=== PATIENT | female | born 1990 | race American Indian/Alaskan Native ===

== ENCOUNTER 2019-07-10 09:30 | Emergency (ER) | payer MEDICAID ==
[2019-07-10] MEDS ORDERED: ASPIRIN PO ONE (09:38)
[2019-07-10 10:43] LABS: BUN/Creatinine Ratio 27; Blood Urea Nitrogen 8 mg/dL (7-17); Calcium 9.4 mg/dL (8.4-10.2); Hemolysis Index 1
[2019-07-10 10:44] LABS: Basophils # (Auto) 0.1 K/mm3 (0.0-0.1); Basophils % (Auto) 0.6 % (0.0-1.8); Eosinophils # (Auto) 0.4 K/mm3 (0.0-0.4); Eosinophils % (Auto) 4.2 % (0.0-4.3); Hematocrit 36.4 % (30.3-42.9); Hemoglobin 12.1 gm/dl (10.1-14.3); Lymphocytes # (Auto) 2.6 K/mm3 (1.2-5.4); Lymphocytes % (Auto) 29.9 % (13.4-35.0); Mean Corpuscular HGB Conc 33 % (30-34); Mean Corpuscular Volume 79 fl (79-97); Monocytes # (Auto) 0.5 K/mm3 (0.0-0.8); Monocytes % (Auto) 5.2 % (0.0-7.3); Platelet Count 283 K/mm3 (140-440)
--- NOTE | 2019-07-10 10:53 | XRay Report ---
CHEST 2 VIEWS INDICATION / CLINICAL INFORMATION: Chest Pain. COMPARISON: None available. FINDINGS: SUPPORT DEVICES: None. HEART / MEDIASTINUM: No significant abnormality. LUNGS / PLEURA: No significant pulmonary or pleural abnormality. No pneumothorax. ADDITIONAL FINDINGS: No significant additional findings. IMPRESSION: 1. No acute findings. Signer Name: Eusebio Lara MD Signed: 07/10/2019 10:49 AM Workstation Name: [id number]
[2019-07-10] MEDS ORDERED: NORVASC PO ONE (11:22)
[2019-07-10] MEDS ORDERED: NORCO 5/325 PO ONE (11:22)
--- NOTE | 2019-07-10 11:27 | Emergency Department Report ---
HPI - General Chief Complaint: Chest Pain Time Seen by Provider: 07/10/19 11:07 - HPI HPI: Room 44 The patient is a 29-year-old female presenting with chief complaint of hypertension and chest pain. The patient states she is a constant headache diffusely for the past 2 days. Patient states she's also had intermittent substernal chest pain is sharp in nature. Patient states she feels the blood pressure is elevated. Patient says she does not carry a diagnosis of hypertension. Patient denies shortness of breath, nausea/vomiting or diaphoresis with chest pain. Patient currently gets her headache score of 9/10 chest pain score 4/10. Location: [See above] Duration: [See above] Quality: [See above] Severity: [See above] Timing: [See above] Context: [See above] Modifying factors: [See above] Associated signs and symptoms: [see above] ED Past Medical Hx - Surgical History Past Surgical History?: No Additional Surgical History: Bilateral tubal ligation - Family History Family history: no significant - Social History Smoking Status: Never Smoker Substance Use Type: None (denies illicit drug use), Alcohol (occasional) - Medications Home Medications: Home Medications Medication Instructions Recorded Confirmed Last Taken Type oxyCODONE /ACETAMINOPHEN [Percocet 1 - 2 tab PO Q4H PRN #30 tablet 09/11/18 Unknown Rx 5/325 mg] amLODIPine [Norvasc] 5 mg PO DAILY #90 tab 07/10/19 Unknown Rx traMADol [Ultram] 50 mg PO Q6HR PRN #10 tablet 07/10/19 Unknown Rx ED Review of Systems ROS: Stated complaint: CHEST PAIN/HBP Other details as noted in HPI Constitutional: no symptoms reported Eyes: denies: eye pain ENT: denies: throat pain Respiratory: denies: shortness of breath Cardiovascular: chest pain Endocrine: no symptoms reported Gastrointestinal: denies: abdominal pain, nausea, vomiting Genitourinary: denies: dysuria Musculoskeletal: denies: back pain Neurological: headache Physical Exam - Physical Exam Vital Signs: Vital Signs 07/10/19 09:36 Temperature 98.5 F Pulse Rate 109 H Respiratory 16 Rate Blood Pressure 178/100 O2 Sat by Pulse 95 Oximetry Physical Exam: GENERAL: The patient is well-developed well-nourished female lying on chair not appearing to be in acute distress. [] HEENT: Normocephalic. Atraumatic. Extraocular motions are intact. Patient has moist mucous membranes. NECK: Supple. No meningitic signs are noted. Trachea midline CHEST/LUNGS: Clear to auscultation. There is no respiratory distress noted. HEART/CARDIOVASCULAR: Regular. There is no tachycardia. There is no gallop rub or murmur. ABDOMEN: Abdomen is soft, nontender. Patient has normal bowel sounds. There is no abdominal distention. SKIN: There is no rash. There is no edema. There is no diaphoresis. NEURO: The patient is awake, alert, and oriented. The patient is cooperative. The patient has no focal neurologic deficits. The patient has normal speech. Cranial nerves II through XII grossly intact, no drift MUSCULOSKELETAL: There is no evidence of acute injury. ED Course Vital Signs 07/10/19 09:36 Temperature 98.5 F Pulse Rate 109 H Respiratory 16 Rate Blood Pressure 178/100 O2 Sat by Pulse 95 Oximetry ED Medical Decision Making - Lab Data Result diagrams: 07/10/19 10:10 07/10/19 10:10 Laboratory Tests 07/10/19 07/10/19 07/10/19 10:10 10:10 12:23 WBC 8.8 RBC 4.60 Hgb 12.1 Hct 36.4 MCV 79 MCH 26 L MCHC 33 RDW 13.0 L Plt Count 283 Lymph % (Auto) 29.9 [place] % (Auto) 5.2 Eos % (Auto) 4.2 Baso % (Auto) 0.6 Lymph # 2.6 [place] # 0.5 Eos # 0.4 Baso # 0.1 Seg Neutrophils % 60.1 Seg Neutrophils # 5.3 D-Dimer Sodium 141 Potassium 3.8 Chloride 103.7 Carbon Dioxide 26 Anion Gap 15 BUN 8 Creatinine 0.3 L Estimated GFR > 60 BUN/Creatinine Ratio 27 Glucose 93 Calcium 9.4 Troponin T < 0.010 < 0.010 HCG, Qual 07/10/19 07/10/19 12:23 12:23 WBC RBC Hgb Hct MCV MCH MCHC RDW Plt Count Lymph % (Auto) [place] % (Auto) Eos % (Auto) Baso % (Auto) Lymph # [place] # Eos # Baso # Seg Neutrophils % Seg Neutrophils # D-Dimer 176.83 Sodium Potassium Chloride Carbon Dioxide Anion Gap BUN Creatinine Estimated GFR BUN/Creatinine Ratio Glucose Calcium Troponin T HCG, Qual Negative - EKG Data -: EKG Interpreted by Me EKG shows normal: sinus rhythm Rate: normal - EKG Data When compared to previous EKG there are: previous EKG unavailable Interpretation: other (no ischemic changes seen) - Radiology Data Radiology results: report reviewed (chest x-ray, CT head), image reviewed (chest x-ray, CT head) interpreted by me: Chest x-ray-no focal infiltrates, no pneumothorax Print Report Referring Physician: ROBERT CHAMBERS Patient Name: KERRY KUMAR Date of : 1990 Sex: Female Report Date: 2019-07-10 Report Status: Finalized Findings [address] [address] XRay Report Signed Patient: KERRY KUMAR MR#: [id number] : 1990 Acct:[id number] Age/Sex: 29 / F ADM Date: 07/10/19 Loc: ED Attending Dr: Ordering Physician: ROBERT CHAMBERS MD Date of Service: 07/10/19 Procedure(s): XR chest routine 2V Accession Number(s): [id number] cc: ROBERT CHAMBERS MD Fluoro Time In Minutes: CHEST 2 VIEWS INDICATION / CLINICAL INFORMATION: Chest Pain. COMPARISON: None available. FINDINGS: SUPPORT DEVICES: None. HEART / MEDIASTINUM: No significant abnormality. LUNGS / PLEURA: No significant pulmonary or pleural abnormality. No pneumothorax. ADDITIONAL FINDINGS: No significant additional findings. IMPRESSION: 1. No acute findings. Signer Name: Eusebio Lara MD Signed: 07/10/2019 10:49 AM Workstation Name: [id number] Transcribed By: DAVID Dictated By: Eusebio Lara MD Electronically Authenticated By: Eusebio Lara MD Signed Date/Time: 07/10/19 104 DD/ 1049 TD/TT: [address] [address] Cat Scan Report Signed Patient: KERRY KUMAR MR#: [id number] : 1990 Acct:[id number] Age/Sex: 29 / F ADM Date: 07/10/19 Loc: ED Attending Dr: Ordering Physician: SANTINO HULL MD Date of Service: 07/10/19 Procedure(s): CT head/brain wo con Accession Number(s): [id number] cc: SANTINO HULL MD NONENHANCED CT SCAN OF THE BRAIN: INDICATION: Headaches TECHNIQUE: Routine CT head without contrast. Sagittal and coronal reformatted images were obtained. All CT scans at this location are performed using CT dose reduction for ALARA by means of automated exposure control. COMPARISON: None. FINDINGS: BRAIN / INTRACRANIAL CONTENTS: No acute hemorrhage, mass effect, midline shift, hydrocephalus, or acute, large territorial infarct. No chronic infarct or focal atrophy. Normal brain volume and ventricular/sulcal size for age. No significant white matter abnormality. In the sagittal reformatted images, pontomedullary junction is not clearly seen. Mammillary pontine distance is also decreased. Tonsillar diplopia is seen. Lateral ventricles are of normal size. Third ventricle is slitlike. These findings suggest intracranial hypotension. However, I do not see subdural effusion at this time or swollen transverse sinuses in the sagittal images. Is there history of recent lumbar puncture or spinal procedure CRANIOCERVICAL JUNCTION: Tonsillar ectopia is seen. ORBITS: No significant abnormality of visualized orbits. SINUSES / MASTOIDS: No significant abnormality of the visualized paranasal sinuses or mastoid air cells. ADDITIONAL FINDINGS: Nasopharyngeal lymphoid hyperplasia is seen. IMPRESSION: I do not see hemorrhage or space taking lesion in the brain However, CT findings suggest intracranial hypotension. Signer Name: Alee Zamora MD Signed: 07/10/2019 1:41 PM Workstation Name: [id number] Transcribed By: BS Dictated By: Alee Reyes MD Electronically Authenticated By: Alee Reyes MD Signed Date/Time: 07/10/19 1341 DD/ 1319 TD/TT: - Differential Diagnosis hypertensive urgency, hypertensive emergency, ICH, PE, ACS Critical care attestation.: If time is entered above; I have spent that time in minutes in the direct care of this critically ill patient, excluding procedure time. ED Disposition Clinical Impression: Chest pain, Headache, Hypertension Disposition: DC-01 TO HOME OR SELFCARE Is pt being admited?: No Does the pt Need Aspirin: No Condition: Stable Instructions: Chest Pain (ED), Hypertension (ED) Additional Instructions: Return to the emergency department should you develop worsening symptoms, inability to tolerate food or liquids, high fever or any other concerns Prescriptions: amLODIPine [Norvasc] 5 mg PO DAILY #90 tab traMADol [Ultram] 50 mg PO Q6HR PRN #10 tablet PRN Reason: Pain Referrals: PRIMARY CARE, [Primary Care Provider] - 3-5 Days ZAHRA CHAPMAN DO [Staff Physician] - 3-5 Days Time of Disposition: 13:54 Heart Score - HEART Score History: Slightly suspicious EKG: Normal Age: < 45 Risk factors: No known risk factors Troponin: < normal limit HEART Score: 0
--- NOTE | 2019-07-10 13:46 | Cat Scan Report ---
NONENHANCED CT SCAN OF THE BRAIN: INDICATION: Headaches TECHNIQUE: Routine CT head without contrast. Sagittal and coronal reformatted images were obtained. A ll CT scans at this location are performed using CT dose reduction for ALARA by means of automated ex posure control. COMPARISON: None. FINDINGS: BRAIN / INTRACRANIAL CONTENTS: No acute hemorrhage, mass effect, midline shift, hydrocephalus, or acu te, large territorial infarct. No chronic infarct or focal atrophy. Normal brain volume and ventricul ar/sulcal size for age. No significant white matter abnormality. In the sagittal reformatted images, pontomedullary junction is not clearly seen. Mammillary pontine d istance is also decreased. Tonsillar diplopia is seen. Lateral ventricles are of normal size. Third v entricle is slitlike. These findings suggest intracranial hypotension. However, I do not see subdural effusion at this time or swollen transverse sinuses in the sagittal images. Is there history of rec ent lumbar puncture or spinal procedure CRANIOCERVICAL JUNCTION: Tonsillar ectopia is seen. ORBITS: No significant abnormality of visualized orbits. SINUSES / MASTOIDS: No significant abnormality of the visualized paranasal sinuses or mastoid air randi ls. ADDITIONAL FINDINGS: Nasopharyngeal lymphoid hyperplasia is seen. IMPRESSION: I do not see hemorrhage or space taking lesion in the brain However, CT findings suggest intracranial hypotension. Signer Name: Alee Zamora MD Signed: 07/10/2019 1:41 PM Workstation Name: [id number]
[2019-07-10 14:11] VITALS: BP 142/83
== END 2019-07-10 14:11 | disposition home or self-care (01) ==
LOC: ED 09:30
DX: I10 Essential (primary) hypertension (principal); R51 Headache; R07.89 Other chest pain; Z98.51 Tubal ligation status; Z79.899 Other long term (current) drug therapy
CPT/HCPCS: 36415; 70450; 71046; 80048; 84484; 84703; 85025; 85379; 93005; 93010